=== PATIENT | female | born 1985 | race Caucasian/White ===

== ENCOUNTER 2017-02-22 11:53 | Day surgery (SDC) | payer BC ==
[~2017-02-22 11:53] MED LIST: Buffered Lidocaine 0.9% SYRIN* 5 ML/SYR SYRINGE INTRADERM ONE; Famotidine IV* 10 MG/ML 2 ML (20 mg) IV ONE
[2017-02-22] MEDS ORDERED: Buffered Lidocaine 0.9% SYRIN* 5 ML/SYR SYRINGE ONE (12:00)
[2017-02-22] MEDS ORDERED: Famotidine IV* 10 MG/ML 2 ML (20 mg) ONE (12:00)
[2017-02-22] MEDS ORDERED: fentaNYL* 50 MCG/ML 2 ML VIAL (100 MCG VIAL) ONE (13:58)
[2017-02-22] MEDS ORDERED: Midazolam* 1 MG/ML 2 ML VIAL (2 MG) ONE ×2 (13:58→13:59)
[2017-02-22] MEDS ORDERED: Lidocaine 2% PF * 5 ML VIAL ONE (14:00)
[2017-02-22] MEDS ORDERED: Ondansetron INJ* 2 MG/ML VIAL ONE (14:00)
[2017-02-22] MEDS ORDERED: Ketorolac INJ* 30 MG/ML 1 ML VIAL ONE (14:00)
[2017-02-22] MEDS ORDERED: Propofol* 10 MG/ML 20 ML BTL IV PUSH ONE (14:00)
[2017-02-22] MEDS ORDERED: Acetaminophen TAB* 325 MG PO PRN (14:19)
[2017-02-22] MEDS ORDERED: Bupivacaine 0.25% SDV* 30 ML ONE (14:45)
[2017-02-22] MEDS ORDERED: Lidocaine 1% INJ* 10 MG/ML 30 ML SDV ONE (14:45)
[2017-02-22] MEDS ORDERED: oxyCODONE/Acetamin 5/325 MG* TAB PO PRN (15:59)
[2017-02-22 16:21] VITALS: BP 109/70
--- NOTE | 2017-02-23 04:46 | OP ---
CC: Елена Hicks MD * DATE OF OPERATION: 02/22/17 - [facility] DATE OF : 81 SURGEON: Frank Hollins MD CIVIL ENGINEERING MANAGER: CATALINO Bhatia ANESTHESIOLOGIST: Dr. Hernánedz. ANESTHESIA: Local MAC. PRE-OP DIAGNOSIS: Soft tissue mass, left lower quadrant abdomen. POST-OP DIAGNOSIS: Soft tissue mass, left lower quadrant abdomen. OPERATIVE PROCEDURE: Excision of soft tissue mass, left lower quadrant abdomen. ESTIMATED BLOOD LOSS: Minimal. IV FLUIDS: Crystalloid. SPECIMEN: Soft tissue mass, left lower quadrant abdomen. DRAINS: None. COMPLICATIONS: None. COUNTS: Instrument, needle and sponge counts were correct. DESCRIPTION OF PROCEDURE: The patient was brought to the operating room and placed on the table supine. Sequential compression devices were placed in both lower extremities. Intravenous sedation was administered. The left lower quadrant soft tissue mass was identified. The skin was prepped and draped in the usual sterile fashion. Time-out was performed. Local anesthetic was infiltrated into the skin and soft tissue and a transverse incision was made over the palpable mass. Subcutaneous tissues were divided with cautery and sharp dissection. The mass appeared to be deep to the Brandyn' s fascia and was dissected out without disturbance of the underlying muscle fascia. The specimen was marked with a suture superiorly and laterally and submitted to Pathology. Hemostasis was assured. Subcutaneous tissue was closed with 3-0 Polysorb in interrupted fashion and skin was closed with 4-0 Monocryl in subcuticular fashion and Steri-Strips were applied. The patient tolerated the procedure well and was transferred to recovery room in stable condition. [id number]/[facility] #: [id number] [facility]
== END 2017-02-22 16:41 | disposition home or self-care (01) ==
LOC: OR 11:53
PROVIDERS: ATTEND Surgery
DX: N80.8 Other endometriosis (principal)
CPT/HCPCS: 81025; 88305; J1885; J2250; J2405; J2704; J3010

== ENCOUNTER 2017-11-08 13:03 | Emergency (ER) | payer BC ==
[2017-11-08] MEDS ORDERED: oxyCODONE/Acetamin 5/325 MG* TAB PO ONE (13:37)
[2017-11-08] MEDS ORDERED: LORazepam TAB(*) 1 MG PO ONE (13:37)
--- NOTE | 2017-11-08 14:47 | RAD ---
HISTORY: trauma, left leg numbness COMPARISONS: None TECHNIQUE: Multiple contiguous axial CT scans were obtained of the lumbar spine without intravenous contrast, with coronal and sagittal multiplanar reformations. FINDINGS: SPINAL CANAL: Evaluation of the central canal is limited on CT technique; however, there is no obvious canalicular mass or epidural hemorrhage. ALIGNMENT: The alignment is normal. VERTEBRAL BODIES: The vertebral bodies are preserved in height. The bones are normal in attenuation. JOINTS: There is no subluxation or dislocation. MUSCULATURE: Normal INTERVERTEBRAL DISCS: There is mild diffuse loss of intervertebral disc height throughout the spine. AXIAL IMAGES: T12-L1: There is no osseous neural foraminal narrowing or central canal stenosis. L1-L2: There is no osseous neural foraminal narrowing or central canal stenosis. L2-L3: There is no osseous neural foraminal narrowing or central canal stenosis. L3-L4: There is no osseous neural foraminal narrowing or central canal stenosis. L4-L5: There is no osseous neural foraminal narrowing or central canal stenosis. L5-S1: There is no osseous neural foraminal narrowing or central canal stenosis. SOFT TISSUES: The visualized soft tissues of the abdomen are unremarkable. OTHER: None IMPRESSION: NO OSSEOUS NEURAL FORAMINAL NARROWING OR CENTRAL CANAL STENOSIS. NO ACUTE OSSEOUS INJURY TO THE LUMBAR SPINE.
--- NOTE | 2017-11-08 15:57 | RAD ---
HISTORY: trauma, lumbar pain COMPARISONS: None VIEWS: 2, frontal views of the pelvis FINDINGS: BONE DENSITY: Normal. BONES: There is no displaced fracture. The sacral arches are intact. 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 ALIGNMENT: There is no dislocation. SOFT TISSUES: Unremarkable. OTHER FINDINGS: None. IMPRESSION: NO ACUTE OSSEOUS INJURY. IF SYMPTOMS PERSIST, RECOMMEND REPEAT IMAGING.
--- NOTE | 2017-11-08 16:29 | ED ---
Back Pain - HPI Summary HPI Summary: This is scribe Morro Morillo documenting for Romeo Tay M.D. Patient is a 31 y/o F w/ c/o left lower back pain due to mechanical fall yesterday. She reports she was walking up wet steps in flip-flops, fell from 3rd step, and landed on her back. Pain is noted to radiate from lumbar spine to left flank. Pain is described as sharp and "stabbing". In the room, she reports pain is 7/10 while standing with no movement. Patient also notes some dizziness and difficulty ambulating. She states getting up aggravates the pain. Nothing Patient took muscle relaxant that was prescribed with no relief in Sx. Abdominal pain is denied. She reports no other medications taken. PSHx of foot surgery last year is noted. MILENA. I, Dr. Tay, personally performed the services described in this documentation as scribed in my presence and it is both accurate and complete. - History of Current Complaint Chief Complaint: EDBackInjuryPain Stated Complaint: BACK PAIN Time Seen by Provider: 11/08/17 13:25 Hx Obtained From: Patient Hx Last Menstrual Period: 4 years Onset/Duration: Lasting Days - yesterday, Still Present Onset/Duration: Started Days Ago - yesterday, Still Present Timing: Constant Back Pain Location: Is Discrete @ - left lumbar area radiating to left flank Severity Currently: Severe - 7/10 while standing with no movement Pain Intensity: 7 Pain Scale Used: 0-10 Numeric - 7/10 Character: Sharp - "stabbing" Aggravating Symptom(s): Other - getting up is noted to aggravate pain Alleviating Symptom(s): Nothing Associated Signs And Symptoms: Positive: Flank Pain - left, Other - dizziness, difficulty ambulating. Negative: Abdominal Pain - Allergies/Home Medications Allergies/Adverse Reactions: Allergies Allergy/AdvReac Type Severity Reaction Status Date / Time No Known Allergies Allergy Verified 11/08/17 13:24 PMH/Surg Hx/FS Hx/Imm Hx Sensory History: Denies: Hx Legally Blind, Hx Deafness Opthamlomology History: Denies: Hx Legally Blind EENT History: Denies: Hx Deafness - Surgical History Surgery Procedure, Year, and Place: wisdom teeth in dental office. 2013 - [facility]. right foot surgery 2017 [place] Hx Anesthesia Reactions: No Infectious Disease History: No Infectious Disease History: Denies: History Other Infectious Disease, Traveled Outside the [place] in Last 30 Days - Family History Known Family History: Negative: Blood Disorder - Social History Alcohol Use: None Substance Use Type: Reports: None Smoking Status (MU): Never Smoked Tobacco Review of Systems Negative: Abdominal Pain Positive: Other - lumbar spine pain radiating to left flank; difficulty walking Neurological: Other - dizziness All Other Systems Reviewed And Are Negative: Yes Physical Exam - Summary Physical Exam Summary: Appearance: The patient is well-nourished in no acute distress and in no acute pain. Skin: The skin is warm and dry and skin color reflects adequate perfusion. HEENT: The head is normocephalic and atraumatic. The pupils are equal and reactive. The conjunctivae are clear and without drainage. Nares are patent and without drainage. Mouth reveals moist mucous membranes and the throat is without erythema and exudate. The external ears are intact. The ear canals are patent and without drainage. The tympanic membranes are intact. Neck: The neck is supple with full range of motion and non-tender. There are no carotid bruits. There is no neck vein distension. Respiratory: Chest is non-tender. Lungs are clear to auscultation and breath sounds are symmetrical and equal. Cardiovascular: Heart is regular rate and rhythm. There is no murmur or rub auscultated. There is no peripheral edema and pulses are symmetrical and equal. Abdomen: The abdomen is soft and non-tender. There are normal bowel sounds heard in all four quadrants and there is no organomegaly palpated. Musculoskeletal: There is midline lumbar and para lumbar tenderness noted. Extremities are non-tender with full range of motion. There is good capillary refill. There is no peripheral edema or calf tenderness elicited. Neurological: Patient is alert and oriented to person, place and time. The patient has symmetrical motor strength in all four extremities. Cranial nerves are grossly intact. Deep tendon reflexes are symmetrical and equal in all four extremities. Psychiatric: The patient has an appropriate affect and does not exhibit any anxiety or depression. Triage Information Reviewed: Yes Vital Signs On Initial Exam: Initial Vitals Temp Pulse Resp BP Pulse Ox 98.4 F 131 20 131/87 97 11/08/17 13:04 11/08/17 13:04 11/08/17 13:04 11/08/17 13:04 11/08/17 13:04 Vital Signs Reviewed: Yes Diagnostics - Vital Signs Vital Signs Temp Pulse Resp BP Pulse Ox 11/08/17 15:15 74 121/85 95 11/08/17 15:00 79 95 11/08/17 14:45 94 135/79 96 11/08/17 14:32 89 126/86 95 11/08/17 14:00 114 97 11/08/17 13:50 115 96 11/08/17 13:46 20 11/08/17 13:45 123 130/95 95 11/08/17 13:04 98.4 F 131 20 131/87 97 - Laboratory Lab Statement: Any lab studies that have been ordered have been reviewed, and results considered in the medical decision making process. - Radiology Pelvis X-ray Xray Interpretation: No Acute Changes Radiology Interpretation Completed By: Radiologist - Pelvis X-ray: No acute osseous injury. If symptoms persist, recommend repeat imaging. This report was reviewed by ED physician. - CT Lumbar Spine CT CT Interpretation: No Acute Changes CT Interpretation Completed By: Radiologist - Lumbar Spine CT: No osseous neural foraminal narrowing or central canal stenosis. No acute osseous injury to the lumbar spine. This report was reviewed by ED physician. Re-Evaluation - Re-Evaluation First Eval Re-Evaluation Time: 16:25 Comment: Discussed results of labs and tests with patient. Patient will be discharged to home and follow up with PCP in 1-2 days. Patient is agreeable with follow up plan. Back Pain Course/Dx - Course Course Of Treatment: Ms. Echeverria presented about 24 hours after slipping on some wet stairs and falling and hitting her left buttock area and low back. Her neuro motor exam was intact although she did complain of some numbness in the left buttock. Imaging studies of her low back and pelvis were negative for any acute fracture and I recommended symptomatic treatment. - Diagnoses Provider Diagnoses: Sciatica Discharge - Sign-Out/Discharge Documenting (check all that apply): Patient Departure - Discharge Plan Condition: Stable Disposition: HOME Prescriptions: oxyCODONE/Acetamin 5/325 MG* [Percocet 5/325 TAB*] 1 tab PO Q6H PRN #20 tab MDD 4 PRN Reason: Pain Patient Education Materials: Sciatica (ED) Forms: *Work Release Referrals: Елена Hicks MD [Primary Care Provider] - 2 Days Additional Instructions: Return to ED for any new or worsening symptoms. Follow up with primary care physician in 2-3 days. Patient is recommended to take ibuprofen. - Billing Disposition and Condition Condition: STABLE Disposition: Home
[2017-11-08 16:43] VITALS: BP 128/81
== END 2017-11-08 16:56 | disposition home or self-care (01) ==
LOC: ED 13:03
DX: M54.30 Sciatica, unspecified side (principal); R42 Dizziness and giddiness; R10.84 Generalized abdominal pain
CPT/HCPCS: 72131; 72170; 99283; A9270-GY

== ENCOUNTER 2018-07-08 07:18 | Emergency (ER) | payer BC, OTHER ==
[2018-07-08 07:28] VITALS: BP 134/87
--- NOTE | 2018-07-08 08:08 | UC ---
Throat Pain/Nasal Tan HPI - HPI Summary HPI Summary: 32-year-old female presents with onset of sore throat last night. States pain radiates up into her right ear. Denies fever, chills, nasal congestion, runny nose, dysphagia, cough, chest pain, shortness of breath, abdominal pain, nausea , or vomiting. - History of Current Complaint Chief Complaint: UCGeneralIllness Stated Complaint: SORE THROAT Time Seen by Provider: 07/08/18 08:02 Hx Obtained From: Patient Hx Last Menstrual Period: 06/26/18 Pain Intensity: 8 - Allergies/Home Medications Allergies/Adverse Reactions: Allergies Allergy/AdvReac Type Severity Reaction Status Date / Time No Known Allergies Allergy Verified 07/08/18 07:28 Home Medications: Home Medications Etonogest/Eth.estradiol (Nf) [Nuvaring Vaginal Ring] 07/08/18 [History] Metformin HCl 1 tab PO DAILY 07/08/18 [History Confirmed 07/08/18] PMH/Surg Hx/FS Hx/Imm Hx Endocrine History: Other - PCOS - Surgical History Surgical History: Yes Surgery Procedure, Year, and Place: wisdom teeth in dental office. 2013 - [facility]. right foot surgery 2017 [place] - Family History Known Family History: Positive: Non-Contributory - Social History Occupation: Employed Full-time Lives: With Family Alcohol Use: None Substance Use Type: None Smoking Status (MU): Never Smoked Tobacco Review of Systems All Other Systems Reviewed And Are Negative: Yes Physical Exam - Summary Physical Exam Summary: GENERAL APPEARANCE: Well developed, well nourished, alert and cooperative, and appears to be in no acute distress. EYES: Conjunctiva clear. No drainage. EARS: External auditory canals and tympanic membranes clear, hearing grossly intact. NOSE: No nasal discharge. THROAT: Pharyngeal erythema with 2+ tonsils and exudate. Uvula midline. Oral cavity normal. Teeth and gingiva in good general condition. NECK: Neck supple, non-tender. Mild anterior cervical lymphadenopathy. CARDIAC: Normal S1 and S2. No S3, S4 or murmurs. Rhythm is regular. There is no peripheral edema, cyanosis or pallor. Extremities are warm and well perfused. Capillary refill is less than 2 seconds. Peripheral pulses intact. LUNGS: Clear to auscultation without rales, rhonchi, wheezing or diminished breath sounds. ABDOMEN: Positive bowel sounds. Soft, nondistended, nontender. No guarding or rebound. No masses or hepatosplenomegally. MUSKULOSKELETAL: ROM intact to all extremities. No joint erythema or tenderness. Normal muscular development. Normal gait. SKIN: Skin normal color, texture and turgor with no lesions or eruptions. Triage Information Reviewed: Yes Vital Signs: Initial Vital Signs Temp 97.8 F 07/08/18 07:24 Pulse 82 07/08/18 07:24 Resp 17 07/08/18 07:24 BP 134/87 07/08/18 07:24 Pulse Ox 100 07/08/18 07:24 Vital Signs Reviewed: Yes Throat Pain/Nasal Course/Dx - Course Course Of Treatment: 32-year-old female presents with onset of sore throat last night. States pain radiates up into her right ear. Denies fever, chills, nasal congestion, runny nose, dysphagia, cough, chest pain, shortness of breath, abdominal pain, nausea , or vomiting. Afebrile. Mildly hypertensive otherwise vital signs stable. Exam remarkable for pharyngeal erythema, 2+ tonsils with exudate, and mild anterior cervical lymphadenopathy. Rapid strep test was positive. Will treat with amoxicillin 500 mg twice a day 10 days as well as symptomatic treatment. She is to follow-up with her primary care provider in 3-5 days if symptoms do not improve. Anticipatory guidance and warning symptoms are reviewed with the patient. Verbalizes understanding and agrees with primary care - Differential Dx/Diagnosis Differential Diagnosis/HQI/PQRI: Mononucleosis, Pharyngitis, Tonsillitis, URI Provider Diagnosis: Strep pharyngitis Discharge - Sign-Out/Discharge Documenting (check all that apply): Patient Departure All imaging exams completed and their final reports reviewed: No Studies - Discharge Plan Condition: Stable Disposition: HOME Prescriptions: Amoxicillin 500 mg PO BID #20 capsule Patient Education Materials: Strep Throat (ED) Referrals: Елена Hicks MD [Primary Care Provider] - 3 Days Additional Instructions: Your rapid strep test in the clinic today was positive. We will start you on an antibiotic to treat the infection. Start amoxicillin 500 mg twice a day for 10 days. Be sure to finish the entire course even if feeling better. After you have been on antibiotics for 3 days, throw out your toothbrush and replace with a new one to prevent reinfection. Drink plenty of fluids to avoid dehydration especially if you are running any fever. Use salt water gargles several times a day. Take over the counter acetaminophen (Tylenol) or ibuprofen (Advil, Motrin) according to directions as needed for pain or fever. You may also use Chloraseptic spray or Cepacol lonzenges according to directions which contain a numbing medication and can provide some temporary relief from your sore throat. Follow up with your primary care provider in 3-5 days if symptoms persist. Your blood pressure was slightly elevated in the clinic today. It is recommended that you follow up with your primary care provider to have this rechecked. Seek immediate medical attention in the emergency room if you have fever greater than 100.5 F despite taking acetaminophen or ibuprofen, are unable to swallow or develop drooling, are unable to open your mouth fully, are unable to eat or drink, have pain that is not relieved with over the counter pain medication, or have any difficulty breathing. - Billing Disposition and Condition Condition: STABLE Disposition: Home
== END 2018-07-08 08:19 | disposition home or self-care (01) ==
LOC: UCEAST 07:18
DX: J02.0 Streptococcal pharyngitis (principal)
CPT/HCPCS: 87651; 99212; G0463

== ENCOUNTER 2021-08-25 18:38 | Inpatient (IN) ==
[2021-08-25 19:47] LABS: ABS Eosinophils 0.1 10^3/ul (0-0.6); ABS Lymphocytes 2.1 10^3/ul (1.0-4.8); ABS Neutrophils 8.4 10^3/ul (1.5-7.7); Eosinophil % 0.8 %; Hematocrit 32 % (35-47); Hemoglobin 10.9 g/dL (12.0-16.0); Lymphocyte % 18.1 %; Mean Corpuscular HGB Conc 34 g/dL (31-36); Mean Corpuscular Hemoglobin 28 pg (27-31); Mean Corpuscular Volume 83 fL (80-97); Mean Platelet Volume 8.9 fL (7.4-10.4); Platelet Count 275 10^3/uL (150-450); Red Cell Distribution Width 13 % (10-15); White Blood Count 11.7 10^3/uL (3.5-10.8)
[2021-08-25 20:41] LABS: Urine Appearance Clear; Urine Bilirubin Negative (Negative); Urine Blood Negative (Negative); Urine Color Yellow; Urine Glucose Negative (Negative); Urine Ketones Negative (Negative); Urine Nitrite Negative (Negative); Urine Protein Negative (Negative); Urine Specific Gravity 1.012 (1.002-1.030); Urine Urobilinogen Negative (Negative)
[2021-08-25 20:51] LABS: Albumin 3.5 g/dL (3.2-5.2); Albumin/Globulin Ratio 1.4 (1-3); Calcium 9.1 mg/dL (8.6-10.3); Globulin 2.5 g/dL (2-4); Total Bilirubin 0.5 mg/dL (0.2-1.0); Uric Acid 7.2 mg/dL (2.3-6.6); eGFR CKD-EPI 119.5 (>60)
[2021-08-25] MEDS ORDERED: Buffered Lidocaine 1% SYRIN 1 ml INTRADERM ONE (21:03)
[2021-08-25] MEDS ORDERED: Lactated Ringers 1000 ml BAG 1,000 ML IV ONE (21:03)
[2021-08-25] MEDS ORDERED: ceFOXitin 2 GM IVPREMIX 2 GM/50 ML BAG IVPB ONE (21:03)
[2021-08-25] MEDS ORDERED: Lactated Ringers 1000 ml BAG 1,000 ML IV SCH (22:00)
[2021-08-26] MEDS ORDERED: Sodium Citrate/Citric Acid LIQ 15 ML UDC ONE (06:00)
[2021-08-26] MEDS ORDERED: Morphine PF AMP (0.5MG/ML) 5 MG/10 ML AMP ONE (07:38)
[2021-08-26] MEDS ORDERED: fentaNYL 100 mcg/2 ml 50 MCG/ML VIAL ONE (07:38)
[2021-08-26] MEDS ORDERED: Phenylephrine IV 10 MG/ML 1 ml VIAL ONE (08:03)
[2021-08-26] MEDS ORDERED: Glycopyrrolate IV 0.2 MG/ML 1 ML VIAL ONE (08:04)
[2021-08-26] MEDS ORDERED: Oxytocin 10 UNITS/ML 1 ML VIAL ONE ×2 (08:21→08:44)
[2021-08-26] MEDS ORDERED: Ondansetron 4 mg VIAL 2 MG/ML 2 ml VIAL IV PRN ×2 (08:47→08:48)
[2021-08-26] MEDS ORDERED: Naloxone 0.4 mg VIAL 0.4 mg/ml 1 ml VIAL IV PRN ×2 (08:47→08:48)
[2021-08-26] MEDS ORDERED: Acetaminophen IV 1 GM/100ML 100 ML IV ONE (08:47)
[2021-08-26] MEDS ORDERED: Metoclopramide 5 MG/ML VIAL (10 mg) IV PRN ×2 (08:47→08:48)
[2021-08-26] MEDS ORDERED: Naloxone 4 mg VIAL (10 ml) 2 MG in NS 0.9% 250 ml 250 ML IV PRN (08:48)
[2021-08-26 09:06] LABS: Urine Benzodiazepine Screen None Detected (None Detect); Urine Cannabinoids Screen None Detected (None Detect); Urine Opiates Screen None Detected (None Detect)
[2021-08-26] MEDS ORDERED: Dibucaine 1% OINT 28.35 GM TUBE PR PRN (09:28)
[2021-08-26] MEDS ORDERED: Oxytocin in LR 20 UNITS/1,000 ML BAG IVPB ONE (09:28)
[2021-08-26] MEDS ORDERED: Witch Hazel PAD JAR TOPICAL PRN (09:28)
[2021-08-26] MEDS ORDERED: Glycerin ADULT 2.4 gm SUPP PR PRN (09:28)
[2021-08-26] MEDS ORDERED: Lactated Ringers 1000 ml BAG 1,000 ML IV SCH (10:00)
[2021-08-26 13:43] LABS: Urine Appearance Cloudy; Urine Bilirubin Negative (Negative); Urine Blood Negative (Negative); Urine Color Yellow; Urine Glucose Negative (Negative); Urine Ketones Negative (Negative); Urine Nitrite Negative (Negative); Urine Protein Negative (Negative); Urine Specific Gravity 1.015 (1.002-1.030); Urine Urobilinogen Negative (Negative)
[2021-08-27 07:55] LABS: ABS Basophils 0.1 10^3/ul (0-0.2); ABS Eosinophils 0.1 10^3/ul (0-0.6); ABS Lymphocytes 1.5 10^3/ul (1.0-4.8); ABS Monocytes 0.9 10^3/ul (0-0.8); Eosinophil % 0.4 %; Hematocrit 32 % (35-47); Hemoglobin 10.4 g/dL (12.0-16.0); Lymphocyte % 9.7 %; Mean Corpuscular HGB Conc 33 g/dL (31-36); Mean Corpuscular Hemoglobin 28 pg (27-31); Mean Corpuscular Volume 84 fL (80-97); Mean Platelet Volume 8.4 fL (7.4-10.4); Platelet Count 284 10^3/uL (150-450); Red Blood Count 3.77 10^6 /uL (3.70-4.87); Red Cell Distribution Width 14 % (10-15); White Blood Count 15.6 10^3/uL (3.5-10.8)
[2021-08-28 09:22] VITALS: BP 114/55
== END 2021-08-28 12:50 | disposition home or self-care (01) | DRG 540 ==
LOC: MCHOBOUT 18:38 → MCHOB 21:07
PROVIDERS: ADMIT Obstetrics & Gynecology; ATTEND Obstetrics & Gynecology

== ENCOUNTER 2021-09-01 20:15 | Inpatient (IN) ==
[2021-09-01] MEDS ORDERED: Magnesium Sulfate OB PREMIX 4 GM/100 ML BAG IV ONE (22:07)
[2021-09-01] MEDS ORDERED: Calcium Gluconate 1 GM/10 ML VIAL (in Pyxis) IV PUSH PRN (22:07)
[2021-09-01 22:38] LABS: Urine Appearance Cloudy; Urine Bilirubin Negative (Negative); Urine Blood 3+ (Negative); Urine Color Yellow; Urine Glucose Negative (Negative); Urine Ketones Negative (Negative); Urine Nitrite Negative (Negative); Urine Protein 2+(100 mg/dL) (Negative); Urine Specific Gravity 1.025 (1.002-1.030); Urine Urobilinogen Negative (Negative)
[2021-09-01 22:44] LABS: Urine Bacteria Absent (Absent); Urine Red Blood Cell 3+(>10/hpf) (Absent); Urine Squamous Epithelial Cell Present (Absent); Urine White Blood Cell 1+(6-10/hpf) (Absent); Urine Yeast Present (Absent)
[2021-09-01 22:54] LABS: Urine Benzodiazepine Screen None Detected (None Detect); Urine Opiates Screen None Detected (None Detect)
[2021-09-01] MEDS ORDERED: Lactated Ringers 1000 ml BAG 1,000 ML IV SCH (23:00)
[2021-09-01] MEDS ORDERED: Magnesium Sulfate OB PREMIX 40 GM/1,000 ML BAG IVPB SCH (23:00)
[2021-09-02 15:10] VITALS: BP 133/84
== END 2021-09-02 16:30 | disposition home or self-care (01) | DRG 561 ==
LOC: MCHOB → OBSVTOIN 20:37 → UNDODISIN 09-02 16:30
PROVIDERS: ADMIT Obstetrics & Gynecology; ATTEND Obstetrics & Gynecology